=== PATIENT | female | born 1960 | race Caucasian/White ===

== ENCOUNTER 2017-03-15 14:35 | Emergency (ER) | payer OTHER ==
[~2017-03-15] VITALS: Ht 162.5 cm; Wt 62.1 kg
[~2017-03-15 14:35] MED LIST: 'PARAFON FORTE500 M1 PO; ALBUTEROL0.09 MG/A2 IH; ANTIVERT25 MG PO; ATIVAN0.5 MG PO; ATIVAN1 MG PO; BACTRIM DS 8001 TA1 PO; BENTYL10 MG PO; BENTYL20 MG PO; BLOOD PRESSURE; CLARITIN-D 12 H1 TAB PO; CLONAZEPAM1 MG PO; DARVOCET N 1001 TAB PO; DOXYCYCLINE MO100 MG PO; FLAGYL500 MG PO; HYDROCODONE BIT1 T11 PO; INDOCIN50 MG PO; LEVOFLOXACIN500 MG PO; LISINOPRIL; LISINOPRIL10 MG PO; LOMOTIL 0.025 M1 TA1 PO; MEDROL DOSEPAK4 MG PO; MOTRIN800 MG PO; PAXIL10 MG PO; PAXIL30 M2 PO; PAXIL30 MG PO; PEPCID20 MG PO; PHENERGAN W/DM120 ML PO; PHENERGAN25 M1 PO; PRILOSEC20 MG PO; PRILOSEC40 M1 PO; PROAIR HFA0.09 MG/AC IH; PROTONIX40 MG PO; PROVENTIL0.09 MG/AC IH; PYRIDIUM200 MG PO; Phenergan25 MG PO; TRAMADOL HCL50 MG PO; VICODIN 5-3001 EACH PO; VICODIN 5/500 505 MG PO; VISTARIL25 M1 PO; ZESTRIL10 MG PO; ZITHROMAX Z PA250 MG PO; ZOFRAN ODT4 MG SL; ZOFRAN4 MG PO
[2017-03-16 07:06] LABS: HEPATITIS B SURFACE AG Negative (Negative); HEPATITIS C AB 0.1 (0.0-0.9)
[2017-03-16 08:12] LABS: HIV 1+2 AB + HIV1 P24 AG Non Reactive (Non Reactive)
== END 2017-03-15 15:35 | disposition home or self-care (01) ==
LOC: ED 14:35
PROVIDERS: Nurse Practitioner Family
DX: S61.230A Puncture wound without foreign body of right index finger without damage to nail, initial encounter (principal); F17.200 Nicotine dependence, unspecified, uncomplicated; Z90.49 Acquired absence of other specified parts of digestive tract; Z79.899 Other long term (current) drug therapy; Z88.0 Allergy status to penicillin; W27.3XXA Contact with needle (sewing), initial encounter; Y93.89 Activity, other specified; Y92.89 Other specified places as the place of occurrence of the external cause; Y99.9 Unspecified external cause status

== ENCOUNTER 2017-06-04 18:20 | Emergency (ER) | payer OTHER ==
[~2017-06-04] VITALS: Ht 162.5 cm; Wt 62.6 kg
[2017-06-04 18:59] LABS: BASO # 0.1 10*3/uL (0.0-0.1); BASO % 0.7 % (0.0-1.0); EOS # 0.2 10*3/uL (0.0-0.4); EOS % 1.8 % (1.0-4.0); HEMATOCRIT 37.8 % (37.0-47.0); LYMPH % 21.5 % (27.0-41.0); MEAN CELL VOLUME 88.7 fl (81.0-99.0); MEAN CORPUSCULAR HGB 30.5 pg (27.0-31.0); MEAN CORPUSCULAR HGB CONC 34.4 g/dl (33.0-37.0); MONO # 0.8 10*3/uL (0.1-1.0); MONO % 8.2 % (3.0-9.0); NEUT # 6.2 10*3/uL (2.3-7.9); NEUT % 67.4 % (47.0-73.0); PLATELET COUNT AUTOMATED 336 10*3/uL (130-400); RED BLOOD COUNT 4.26 10*6/uL (4.10-5.10); RED CELL DISTRI WIDTH 12.1 % (0-14.5); WHITE BLOOD COUNT 9.1 10*3/uL (4.8-10.8)
[2017-06-04 19:16] LABS: ALBUMIN 3.5 gm/dl (3.1-4.5); ALKALINE PHOSPHATASE 87 U/L (45-117); BUN 10 mg/dl (7-24); CHLORIDE 98 mmol/L (98-107); CREATININE 0.52 mg/dL (0.55-1.02); LIPASE 321 U/L (73-393); POTASSIUM 3.4 mmol/L (3.5-5.1); SGOT/AST 12 IU/L (3-35); SGPT/ALT 18 U/L (12-78); SODIUM 135 mmol/L (136-145); TOTAL PROTEIN 7.5 gm/dL (6.4-8.2)
[2017-06-04 19:17] LABS: TROPONIN I < 0.015 ng/ml (<0.045)
[2017-06-04 19:48] LABS: BILIRUBIN NEGATIVE (NEGATIVE); BLOOD TRACE-LYSED (NEGATIVE); CLARITY CLEAR (CLEAR); COLOR YELLOW (YELLOW); GLUCOSE NEGATIVE (NEGATIVE); KETONE NEGATIVE (NEGATIVE); LEUKO ESTERASE NEGATIVE (NEGATIVE); NITRITE NEGATIVE (NEGATIVE); PH 5.5 (5.0-9.0); SPECIFIC GRAVITY <= 1.005 (1.005-1.030); UROBILINOGEN 0.2 E.U./dl (0.2-1.0)
[2017-06-04 19:54] LABS: BACTERIA TRACE
[2017-06-04] MEDS ORDERED: ZOFRAN ODT4 MG SL (21:57)
== END 2017-06-04 21:59 | disposition home or self-care (01) ==
LOC: ED 18:20
PROVIDERS: Physician Assistant
DX: R11.2 Nausea with vomiting, unspecified (principal); F17.200 Nicotine dependence, unspecified, uncomplicated; Z88.0 Allergy status to penicillin; Z79.899 Other long term (current) drug therapy

== ENCOUNTER 2017-10-16 16:18 | Emergency (ER) | payer OTHER ==
[~2017-10-16] VITALS: Ht 160 cm; Wt 62.1 kg
[2017-10-16] MEDS ORDERED: CLINDAMYCIN150 MG PO (16:36)
== END 2017-10-16 16:52 | disposition home or self-care (01) ==
LOC: ED 16:18
DX: R59.1 Generalized enlarged lymph nodes (principal); R03.0 Elevated blood-pressure reading, without diagnosis of hypertension; Z90.49 Acquired absence of other specified parts of digestive tract; Z79.899 Other long term (current) drug therapy; Z88.0 Allergy status to penicillin

== ENCOUNTER 2017-11-15 20:09 | Inpatient (IN) | payer OTHER ==
[~2017-11-15] VITALS: Ht 162.6 cm; Wt 68.2 kg
--- NOTE | ~2017-11-15 | CON ---
[place], [place] REPORT OF CONSULTATION [id number] UNIT #: [id number] ROOM: 415 DOCTOR: MONSE MOODY MD BIRTHDATE: [birth year] DOS: 11/16/2017 REASON FOR CONSULTATION: Pericardial effusion. HISTORY OF PRESENT ILLNESS: The patient is a 57-year-old woman who does have a history of cigarette abuse. She was evaluated at the [facility] several years ago with a cardiac catheterization because of complaints of dyspnea and chest discomfort. She was told at that time that she had mild coronary artery disease, but that it would certainly get worse if she continued to smoke. She has not stopped smoking since then, but has not had any further chest discomfort. About 1-1/2 months ago, she did have pneumonia. She was treated with antibiotics and improved and was doing well until the last week or two. In that time, she began to have increased dyspnea and a tight sensation across her chest associated with some nausea and some vomiting. She did note that she had swelling in front of her left ear, which was firm and tender. She also does note that she has had soaking night sweats, which have been present for several weeks. She denies any persistent weight loss, although she states that her weight is going "up and down." She came into the hospital because of worsening dyspnea. A CAT scan was done and showed mild dilation of the ascending aorta, which measures 3.8 cm in diameter. This is similar to what was seen on a previous CAT scan dated 09/22/2015. She also had a moderate sized pericardial effusion. She has soft tissue densities in the right hilar region with narrowing of the upper lobe bronchus and also narrowing of the bronchus intermedius as well as the right lower lobe bronchus concerning for central mass and malignancy with possible postobstructive pneumonia. She also has a moderate sized left pleural effusion. Because of the pericardial effusion, we were asked to help with her management. The patient denies lightheadedness. She denies pleuritic chest pain. She has a dry nonproductive cough. She has not had any syncope. PAST MEDICAL HISTORY: Includes 1. Cardiac catheterization several years ago at the [facility]. According to the patient, this demonstrated mild coronary artery disease. 2. Gastroesophageal reflux disease. 3. Nephrolithiasis. 4. History of rib fracture. 5. Pancreatitis. 6. History of depression. 7. Remote history of alcohol abuse. 8. Tobacco abuse of about one-half pack of cigarettes per day. 9. Pneumonia 1-1/2 months prior to the current admission. FAMILY HISTORY: The patient's father of a heart attack at age 57. Her paternal grandmother and grandfather both had heart disease. Her brother of a drug overdose. REVIEW OF SYSTEMS: The patient denies diplopia or loss of vision. She denies [place], [place] REPORT OF CONSULTATION NAME: LEVON CROFT UNIT #: [id number] ROOM: 415 DOCTOR: MONSE MOODY MD BIRTHDATE: [birth year] lightheadedness or syncope. She denies palpitations, orthopnea or PND. She has had a heavy aching in her chest, but she states that this is actually getting better. She does admit to soaking night sweats, which have been present for several weeks, but she denies any persistent weight loss. She has had some nausea and vomiting. She denies blood in her urine or stools and denies hemoptysis or hematemesis. She denies change in her bowel or bladder habits. She denies peripheral edema. The remainder of the review of systems is negative except as noted above. SOCIAL HISTORY: The patient is single. She works as a cook at [employer]. She smokes about half pack of cigarettes a day. PHYSICAL EXAMINATION: GENERAL: The patient is a well-nourished, white female who is awake, alert and oriented. VITAL SIGNS: Pulse is 88 and regular, blood pressure is 149/76. She is afebrile. HEENT: Normocephalic and atraumatic. Extraocular muscles are intact. Sclerae are clear. Pupils are equal, round and react to light. The oral mucosa is moist. Tongue is midline. NECK: Supple. She does have firm lymph nodes in the anterior cervical chains bilaterally. These are slightly tender to palpation. Carotids are full without bruits. She has no thyromegaly. LUNGS: Respirations are unlabored. Her chest has decreased breath sounds at the right base with dullness at the right base. She has no presacral edema. She has no axillary adenopathy on the right, but there is some thickening of the axillary tissues on the left, which may be due to adenopathy. CARDIOVASCULAR: Her heart has a regular rhythm. She has a fourth heart sound, but no third heart sound or murmur. There is no rub. She has no precordial heave, lift or thrill. There is no obvious pulsus paradoxus on evaluation of peripheral pulses. ABDOMEN: Soft and normoactive. She does have tenderness in her left upper quadrant and her spleen does appear to be slightly enlarged to palpation. The remainder of her abdomen is benign without masses, organomegaly, bruits or rebound. EXTREMITIES: Showed no edema to the feet. She has no palpable cords. Pedal pulses are easily palpated bilaterally. LABORATORY DATA: Her electrocardiogram shows sinus rhythm with poor precordial R-wave progression and nonspecific ST and T-wave changes. Hemoglobin is 13.2, hematocrit 39.2. There are 4500 white cells and 267,000 platelets present. Sodium is 143, potassium 3.8, chloride 107, CO2 25, BUN 10, creatinine 0.65, glucose 145. Hemoglobin A1c 4.8. Troponin levels have been negative. Total cholesterol is 210 with an LDL of 150 and HDL 42 and triglycerides of 88. IMPRESSION: 1. Moderate sized pericardial effusion noted on CT scanning of the chest. There is no hemodynamic evidence for tamponade at this point. [place], [place] REPORT OF CONSULTATION NAME: LEVON CROFT UNIT #: [id number] ROOM: [facility] DOCTOR: MONSE MOODY MD BIRTHDATE: [birth year] 2. Ascending aortic ectasia. The aorta is at the upper limits of normal and unchanged from a previous CAT scan of the chest dated 09/22/2015. This should be treated with blood pressure control and observation only. 3. Cervical adenopathy with possible left axillary adenopathy and possible splenomegaly. In addition, the patient does have mediastinal adenopathy, a pericardial effusion, and night sweats. I think that it is most likely that the patient does have lymphoma, but other malignancies must also be considered. 4. History of cigarette abuse. PLAN: From a cardiac standpoint, the patient appears hemodynamically stable. The pleural effusion is likely due to her malignancy and the pericardial effusion appears to have accumulated gradually so that it has not caused hemodynamic embarrassment. We will evaluate her further with an echocardiogram to look at left ventricular function, valve function and any other signs of tamponade, but at this point, she seems to be free of tamponade findings. I think that in the long run her diagnosis and treatment will depend upon the results of tissue sampling. Her pericardial effusion will likely respond to whatever therapy is given for her malignancy once it is initiated. We will follow with her other physicians. I thank the hospitalist physicians for asking our advice regarding her care. MONSE MOODY MD CM:CONSTR:REPORT OF CONSULTATION 30 11/25/17 0814 interface
--- NOTE | ~2017-11-15 | PR ---
[place], [place] PROGRESS NOTE NAME: LEVON CROFT [facility] #: [id number] UNIT #: [id number] ROOM: 415 DOCTOR: MONSE MOODY MD BIRTHDATE: [birth year] DOS: 11/17/2017 SUBJECTIVE: The patient was seen at her bedside today for followup of her pericardial effusion. She did undergo a thoracentesis, 700 mL were removed. Analysis is pending. Bronchoscopy is planned for tomorrow. I reviewed the results of her echocardiogram today. Left ventricular size and function are normal. A moderate to large pericardial effusion is present. The visceral pericardium is thickened and irregular consistent with possible tumor infiltration. Left ventricular systolic function is normal with an ejection fraction of 55%. Diastole appears normal as well. No valve abnormalities were seen. Right atrial collapse is present, but right ventricular collapse is not and there is no evidence for a Doppler pulsus paradoxus. The study indicates that she does not have a hemodynamically significant pericardial effusion as of yet. PHYSICAL EXAMINATION: VITAL SIGNS: Today her pulse is 84 and regular, blood pressure is 139/80. She is afebrile. NECK: Supple. She has bilateral adenopathy and firm masses in her neck. LUNGS: Respirations are unlabored. She does have decreased breath sounds at the right base. There is no presacral edema. HEART: Has a regular rhythm with a fourth heart sound, but no third heart sound or murmur. I did not hear a rub. There was no precordial heave, lift or thrill. ABDOMEN: Soft and normally active. EXTREMITIES: Showed no edema. IMPRESSION: 1. Moderate sized pericardial effusion noted on CT scan of the chest. There is no hemodynamic evidence for tamponade at this point. 2. Ascending aortic ectasia. The aorta is at the upper limits of normal in size and unchanged from a previous study done 09/22/2015. This should be treated with blood pressure control and observation. 3. Cervical adenopathy with possible left axillary adenopathy, possible splenomegaly and mediastinal adenopathy. In addition, the patient does have a pericardial effusion and night sweats. This most likely represents a lymphoma, but other malignancies must also be considered. 4. History of cigarette abuse. PLAN: The patient remains hemodynamically stable. Pleural fluid was sampled today and she is to have a bronchoscopy tomorrow. I think that a tissue diagnosis will be very helpful in her ongoing management and we will await that. I thank the hospitalist physicians for asking our advice regarding her care. [place], [place] PROGRESS NOTE NAME: LEVON CROFT UNIT #: [id number] ROOM: [facility] DOCTOR: MONSE MOODY MD BIRTHDATE: [birth year] MONSE MOODY MD CM:PNTRANS [id number] MONSE MOODY MD 11/18/17 4859 interface
--- NOTE | ~2017-11-15 | PROC NOTE ---
[place], [place] PROCEDURE NOTE [id number] UNIT #: [id number] ROOM: 415 DOCTOR: NIRU SERRATO MD,CEE BIRTHDATE: [birth year] DOS: 11/17/2017 PROCEDURE: Right-sided thoracentesis under ultrasound guidance. PREOPERATIVE DIAGNOSIS: The patient with a right pleural fluid, unclear etiology. POSTOPERATIVE DIAGNOSES: Removal of 700+ mL pleural fluid, right pleural space without any difficulty with ultrasound guidance. PROCEDURE DESCRIPTION: Informed consent obtained for the patient. She was placed in the sitting position. Ultrasound of the chest was performed. The site of thoracentesis marked in the right posterior chest wall. After that, skin was cleaned with chlorhexidine solution, 1% lidocaine was administered in the skin for the patient during administration of local anesthetic, a small amount of fluid was aspirated from the right pleural space. Small incision given in the skin for the patient, Turkel catheter introduced through the incision into the right pleural space without any difficulty. A total of 700 mL of pleural fluid was obtained for the patient with initial fluid was obtained for samples including for pH. Procedure well tolerated by the patient without any difficulty. The chest x-ray was also done for the patient shows resolution of the current pleural fluid, improvement in aeration of the lung as well. There was no pneumothorax. CEE MARRUFO MD CM:PROCNOTE:PROCEDURE NOTE 1129 [id number] CEE SERRATO MD
--- NOTE | ~2017-11-15 | PROC NOTE ---
[place], [place] PROCEDURE NOTE NAME: LEVON CROFT UNIT #: [id number] ROOM: 415 DOCTOR: NIRU SERRATO MD,CEE BIRTHDATE: [birth year] DOS: 11/18/2017 PROCEDURE: Fiberoptic bronchoscopy. PREOPERATIVE DIAGNOSES: The patient with lymphadenopathy, mediastinum with the right pleural fluid and cough. POSTOPERATIVE DIAGNOSES: Moderate severe impacted mucus plugs. There were no discrete endobronchial lesion. Irregular mucosa noted with a splayed mumtaz. COMPLICATION: None. PROCEDURE DESCRIPTION: Informed consent obtained for the patient. The patient brought to the OR and placed in supine position. Conscious sedation administered by Anesthesia Department. After achieving proper sedation, airway introduced into the mouth. Bronchoscope advanced to the airway into laryngeal area. Epiglottis and vocal cords were seen. Vocal cords moving in symmetrically with movements. Bronchoscope and vocal and tracheal lumen shows moderate amount of thick mucus secretion, which was suctioned out with the help of normal saline wash. The mumtaz was noted splayed. Significant irregularity to the mucosa noted at the level of the mumtaz patient in the main stem bronchi and lower part of trachea. Significant that is unknown possibility of infiltrative process and the submucosa to be considered. The mucous impaction was also noted endobronchial tree bilateral subsegments as well, which were cleared off with normal saline wash and sent for cultures. Procedure well tolerated by the patient without any difficulty. The patient will be transferred to [facility] for further assessment for the patient today. The case was discussed with Dr. Mirella Holm as well to make arrangement for transfer. CEE MARRUFO MD CM:PROCNOTE:PROCEDURE NOTE 0820 0835 CEE SERRATO MD
--- NOTE | ~2017-11-15 | EKG ---
[place], [place] ELECTROCARDIOGRAM REPORT NAME: LEVON CROFT UNIT #: [id number] ROOM: 415 DOCTOR: NIRU SERRATO MD,CEE BIRTHDATE: [birth year] DOS: 11/17/2017 Echocardiogram done on 11/17/2017 at 10:16 a.m. Normal sinus rhythm noted. Heart rate 72 beats per minute. The electrocardiogram was noted normal. CEE MARRUFO MD CM:EKGRPT:ELECTROCARDIOGRAM REPORT 1021 1124 CEE SERRATO MD
--- NOTE | ~2017-11-15 | CON ---
[place], [place] REPORT OF CONSULTATION NAME: LEVON CROFT [facility] #: [id number] UNIT #: [id number] ROOM: 415 DOCTOR: CEE FERNANDEZ MD BIRTHDATE: [birth year] DOS: 11/17/2017 CONSULTATION REQUESTED BY: Hospitalist service. REASON FOR CONSULTATION: Pleural fluid, possibly mass, and pneumonia in the lungs as well. HISTORY OF PRESENT ILLNESS: This is a 57-year-old white female patient who was admitted to the hospital on 11/15/2017 under the care of hospitalist services. The patient has been seen and managed by Dr. Sandoval as an outpatient. The patient stated that she had developed symptoms of acute chest pain, which has been reported in the right side of the chest associated with coughing, wheezing or shortness of breath about a month and half ago. She has been noted with acute pneumonia, which has been treated with the antibiotics and also inhalers. The patient stated reduction and resolution of the symptom for this patient until later, she developed having increased symptoms of shortness of breath that occurred recently. She also developed coughing, which has been noted mostly nonproductive with excessive sweating. She denies symptoms of chills, but stating that she might have a fever. She denies symptoms of hemoptysis with current symptom. She denies any symptoms of acute chest pain at this time, which has been noted previously about a month and half ago on the right side that resolved completely. The patient does have symptoms of shortness breath that occurs with exertion. REVIEW OF SYSTEMS: Remaining systems were reviewed. They were noted for as follows: CONSTITUTIONAL: Fatigue and tiredness reported. The patient with sweating excessive intermittently, but there were no symptoms of fever or chills reported. EAR, NOSE, AND THROAT: Denies sore throat, hoarseness, otalgia, postnasal drainage or epistaxis. CARDIOVASCULAR: Denies anginal pain, edema or pain in the lower extremities. GASTROINTESTINAL: Denies dysphagia, nausea, vomiting, diarrhea, abdominal pain, hematemesis, melena, or hematochezia. GENITOURINARY: No dysuria, suprapubic pain, or hematuria. MUSCULOSKELETAL: No acute joint pain, redness, or tenderness. SKIN: Denies abnormal lesions or rashes. CENTRAL NERVOUS SYSTEM: No dizziness, diplopia or syncopal episodes or seizures. Remaining systems were reviewed with the patient, they were noted all negative. PAST MEDICAL HISTORY: 1. Coronary artery disease. 2. Allergic rhinitis. 3. Depression. 4. Gastroesophageal reflux. 5. Nephrolithiasis. 6. History of pancreatitis. 7. History of rib fractures. [place], [place] REPORT OF CONSULTATION NAME: LEVON CROFT UNIT #: [id number] ROOM: 415 DOCTOR: NIRU SERRATO MD,CEE BIRTHDATE: [birth year] PAST SURGICAL HISTORY: Reported: 1. Cholecystectomy. 2. Cardiac catheterization and coronary stents insertion. SOCIAL HISTORY: The patient stated she is single, does not have any children, lives at home. Denies history of illicit drug use, any alcohol use. Tobacco use noted from age 22, use of 1 pack of cigarettes per day. Later on, the patient decreased to half a pack of cigarettes per day smoking about half pack of cigarettes per day actively for the past 20 years. FAMILY HISTORY: Father at age 50 from complication of myocardial infarction. Mother at the age 50 with complication related to the cancer of the colon and ovaries. Several of the family member on the mother's side reported with a history of colon cancer as well. HOME MEDICATIONS: Noted as use of Zyrtec, omeprazole, Percocet, and Paxil. DRUG ALLERGIES: NOTED ALLERGY TO PENICILLIN. PHYSICAL EXAMINATION: GENERAL: This is a 57-year-old white female who was noted well-developed, well-nourished without any acute distress, sitting comfortably on the bed. Height of 5 feet 4 inches, weight 150 pounds, BMI 25.7. VITAL SIGNS: For the patient which has been recorded showed normal temperature, respiratory rate 16-18, heart rate of 84-100, blood pressure 184/88-151/72. Pulse oxygen saturation on room air was 94% saturation. HEENT: Shows head was atraumatic. Eyes nonicterus. NECK: Supple. CARDIOVASCULAR: S1, S2 audible. LUNGS: Noted decreased breaths are noted in the right lung. No wheezing or crackles. ABDOMEN: Soft, flat, nontender, bowel sounds present. EXTREMITIES: No acute edema. MUSCULOSKELETAL: No acute deformities. CENTRAL NERVOUS SYSTEM: Cranial nerves 2-12 are intact. LABORATORY DATA: CBC of the patient that was done on 11/15/2017 was normal. The lactic acid of 1.8, normal. PT/PTT noted normal. CMP of 618. BUN normal, creatinine was normal, and potassium 2.8. The troponin in addition to assess the patient on 11/15/2017 was normal. BMP of the patient of 11/16/2017, normal BUN and creatinine. Glucose 145. BUN and creatinine noted normal on 11/15/2017 as well. Blood culture from 11/15/2017, which were done for the patient was noted without any abnormal bacterial growth. RADIOLOGY DATA: Review of the patient was performed. The patient had a CT scan of the chest, which was done on 09/21/2017 noted as no acute abnormalities. The chest x-ray of patient done on 11/16/2016 about a year ago noted changes of hyperinflation, possible COPD, no acute infiltration. On 06/04/2017, chest x-ray of the patient noted without any acute abnormalities. Chest x-ray which [place], [place] REPORT OF CONSULTATION [facility]: [id number] UNIT #: [id number] ROOM: [facility] DOCTOR: NIR[facility] BIR[facility] [birth year] was done, 2-view for the patient on 11/15/2017 showed perihilar infiltration was suggested for the patient. CT scan of the chest was done for the patient without contrast on 11/16/2017 was noted with narrowing of the right mid stem bronchus as well and the right upper lung bronchi as well. Because of lack of contrast, the mediastinal structure could not be very well assessed, possibly lymphadenopathy can be completely excluded. Area of right middle lobe atelectasis, right lower lobe atelectasis noted with moderate size pleural fluid as well. A small 5 mm nodule was noted in the left upper lobe as well. There was no pleural fluid noted in the left side. IMPRESSION: 1. The patient will be currently admitted to the hospital noted with presumed pneumonia. There was no documentation actually for the patient, which has been done. The patient empirically treated most likely with antibiotics. The patient about 6 weeks ago with resolution of symptoms and recurrence of current symptoms noted. Current CT scan of chest shows CHF suggestive of possibly partially treated pneumonia; however, malignancy to be excluded for further comprehensive assessment with history of chronic nicotine abuse. 2. History of allergic rhinitis as well. 3. A 5 mm nodule noted in the left upper lobe at this time, significance unknown. Other differential to be considered for the patient is to rule out pulmonary embolism for the patient, other etiology for the patient as well for appropriate testing. PLAN OF MANAGEMENT: The patient has been currently getting bronchodilators and other pain management for the patient if necessary. She does not have any chest pain at this time. Bronchodilators were continued for the patient as was also receiving the Solu-Medrol for patient as well that will be continued for possibility of acute exacerbation of COPD. The patient has not been receiving any intravenous antibiotics. The patient will be started on at least doxycycline 100 mg orally b.i.d. The thoracentesis for the patient will be done at the bedside. Ultrasound of the chest was performed for patient with moderate size pleural fluid was isolative on the right side for thoracentesis. Based on the pleural fluid analysis, additional assessment to be done. Further bronchoscopy plan to be done. CTA of the chest will be done for the patient to have more accurate assessment of the mediastinum, pulmonary vessels. The risk and benefits of the thoracentesis that will be performed today and bronchoscopy that will be done tomorrow were discussed in detail with the patient. She understood them and wanted me to proceed with the current testing and procedures. [place], [place] REPORT OF CONSULTATION NAME: LEVON CROFT UNIT #: [id number] ROOM: [facility] DOCTOR: CEE FERNANDEZ MD BIRTHDATE: [birth year] CEE MARRUFO MD CM:CONSTR:REPORT OF CONSULTATION 1128 11/24/17 0827 interface
--- NOTE | ~2017-11-15 | PR ---
[place], [place] PROGRESS NOTE NAME: LEVON CROFT [facility] #: [id number] UNIT #: [id number] ROOM: 415 DOCTOR: NIRU SERRATO MD,CEE BIRTHDATE: [birth year] DOS: 11/18/2017 PULMONARY PROGRESS NOTE SUBJECTIVE: The patient was noted comfortable at this time. Thoracentesis done yesterday with about 700 mL of fluid was removed. The patient has a CT of the chest completed yesterday to further assess the mediastinal and other structure appropriately. The patient was not noted symptoms of chest pain. There were no symptoms of shortness of breath or hemoptysis. There were no symptoms of headache or diplopia. Denies symptoms of edema or pain of lower extremities. Denies symptoms of nausea or vomiting. Remaining systems were reviewed and they were noted all negative. PHYSICAL EXAMINATION: VITAL SIGNS: Vital signs of the patient, which were noted as normal temperature, respiratory rate 24, heart rate 77, and blood pressure 160/98 this morning. Pulse oxygen saturation on room air 94% saturation. HEENT: Examination shows head was atraumatic. Eyes nonicterus. NECK: Supple. CARDIOVASCULAR: S1, S2 audible. LUNGS: The patient was noted without any wheezing or crackles at the present time. Breath sounds noted minimally decreased in the right lower lung. ABDOMEN: Soft, nontender. Bowel sounds present. EXTREMITIES: The patient noted without any acute edema, clubbing, or cyanosis. CENTRAL NERVOUS SYSTEM: Nonfocal. MUSCULOSKELETAL: Noted without any gross deformities. VISIBLE SKIN: No lesions or rashes. LABORATORY DATA: CBC for the patient of 11/18/2017 was noted as WBC count normal, hemoglobin, hematocrit, and platelet count all noted as normal. CMP of this morning, BUN 13, creatinine normal, and glucose 116. Remaining LFTs normal. Echocardiogram that was completed yesterday shows evidence of stwrvhub-wy-qteqd pericardial effusion with regularity of the pericardial surface is also noted suggestive of possible consideration for malignancy as well. CT of the chest was also personally reviewed shows a small remaining right pleural fluid. There was no discrete mass. A 5 mm nodule noted in the left lingula. Significant amount of soft tissue was noted in the right hilar area as well as pre and subcarinal area. Possible consideration of lymphadenopathy to be considered. The analysis of pleural fluid of yesterday noted as total WBC of 3,900, 80% lymphocytes, and 80% macrophages. Chemistry was noted, glucose 141, protein of 4.1, LDH 161, cholesterol 75, triglycerides 25, amylase 36, and albumin 2.6 consistent with an exudative pleural effusion. Cultures of the pleural fluid predominantly noted as pending. Gram stain does not show any organism with moderate white blood cells seen. Culture of the urine noted no bacterial growth from 11/16/2017. IMPRESSION: 1. The patient who has been currently noted with multiorgan system involving the patient with [id number] pericardial effusion with pleural fluid, [place], [place] PROGRESS NOTE NAME: LEVON CROFT UNIT #: [id number] ROOM: 415 DOCTOR: NIRU SERRATO MD,CEE BIRTHDATE: [birth year] which was also noted exudative in nature of lymphadenopathy, mediastinum with possible consideration for malignancy remains in the differential diagnosis. However, the infection, which could be viral in origin could result in a serositis including pericardial effusion and the pleural effusion as well. 2. History of nicotine abuse previously. 3. Acute exacerbation of chronic obstructive pulmonary disease as well. PLAN OF MANAGEMENT: Reduce the Solu-Medrol to 40 mg b.i.d. dosing at this time. This is the fibrobronchoscopy. Modification treatment after bronchoscopy will be considered for transfer to [facility] for pericardial window. It will be necessary to exclude malignancy as well. Follow up the cytology results of the pleural fluid as well. The patient might require assessment of the mediastinal if necessary. The case was discussed with Dr. Ramirez, thoracic surgeon, staff at [facility] about that. The patient was told about that and she was agreeable to that. Other supportive therapy and plan of management in the meantime to be continued as in progress. Usual care. Additional treatment changes will be made for the patient based on progression of the illness. CEE MARRUFO MD CM:PNTRANS [id number] CEE SERRATO MD 11/18/17 0825 interface
[2017-11-15 20:09] VITALS: BP 155/83
[~2017-11-15 20:09] MED LIST changes: +CLINDAMYCIN150 MG PO
[2017-11-15 20:40] LABS: BASO # 0.1 10*3/uL (0.0-0.1); EOS # 0.1 10*3/uL (0.0-0.4); EOS % 1.5 % (1.0-4.0); HEMATOCRIT 41.8 % (37.0-47.0); HEMOGLOBIN 13.9 g/dl (12.0-16.0); LYMPH % 13.8 % (27.0-41.0); MEAN CELL VOLUME 85.7 fl (81.0-99.0); MEAN CORPUSCULAR HGB 28.5 pg (27.0-31.0); MEAN CORPUSCULAR HGB CONC 33.3 g/dl (33.0-37.0); MEAN PLATELET VOLUME 9.2 fl (9.6-12.3); MONO # 0.6 10*3/uL (0.1-1.0); MONO % 8.3 % (3.0-9.0); NEUT # 5.4 10*3/uL (2.3-7.9); PLATELET COUNT AUTOMATED 293 10*3/uL (130-400); RED BLOOD COUNT 4.88 10*6/uL (4.10-5.10); RED CELL DISTRI WIDTH 13.6 % (0-14.5); WHITE BLOOD COUNT 7.2 10*3/uL (4.8-10.8)
[2017-11-15 20:50] LABS: ACT PARTIAL THROMBO TIME 23.9 SECONDS (20.8-31.5)
[2017-11-15 20:56] LABS: ALBUMIN 3.5 gm/dl (3.1-4.5); ALKALINE PHOSPHATASE 91 U/L (45-117); BUN 5 mg/dl (7-24); CHLORIDE 105 mmol/L (98-107); CREATININE 0.65 mg/dL (0.55-1.02); LIPASE 162 U/L (73-393); POTASSIUM 2.8 mmol/L (3.5-5.1); SGOT/AST 12 IU/L (3-35); SGPT/ALT 16 U/L (12-78); SODIUM 142 mmol/L (136-145); TOTAL PROTEIN 7.4 gm/dL (6.4-8.2)
[2017-11-15 20:59] LABS: TROPONIN I < 0.015 ng/ml (<0.045)
[2017-11-15 23:15] VITALS: BP 149/87
[2017-11-15] MEDS ORDERED: ZYRTEC10 MG PO (23:34)
[2017-11-15] MEDS ORDERED: PERCOCET 7.5-31 EACH PO (23:34)
[2017-11-15 23:57] LABS: BILIRUBIN NEGATIVE (NEGATIVE); BLOOD TRACE-INTACT (NEGATIVE); CLARITY SL CLOUDY (CLEAR); COLOR YELLOW (YELLOW); GLUCOSE NEGATIVE (NEGATIVE); KETONE TRACE (NEGATIVE); LEUKO ESTERASE NEGATIVE (NEGATIVE); NITRITE NEGATIVE (NEGATIVE); SPECIFIC GRAVITY >= 1.030 (1.005-1.030)
[2017-11-16] VITALS (7 sets, daily range): BP systolic 149–184; BP diastolic 72–98
[2017-11-16 00:12] LABS: BACTERIA 1+; MUCOUS TRACE
[2017-11-16 06:10] LABS: HEMATOCRIT 39.2 % (37.0-47.0); HEMOGLOBIN 13.2 g/dl (12.0-16.0); MEAN CELL VOLUME 86.5 fl (81.0-99.0); MEAN CORPUSCULAR HGB 29.1 pg (27.0-31.0); MEAN CORPUSCULAR HGB CONC 33.7 g/dl (33.0-37.0); MEAN PLATELET VOLUME 9.6 fl (9.6-12.3); PLATELET COUNT AUTOMATED 267 10*3/uL (130-400); RED BLOOD COUNT 4.53 10*6/uL (4.10-5.10); RED CELL DISTRI WIDTH 13.6 % (0-14.5); WHITE BLOOD COUNT 4.5 10*3/uL (4.8-10.8)
[2017-11-16 06:44] LABS: BUN 10 mg/dl (7-24); CHLORIDE 107 mmol/L (98-107); CHOLESTEROL 210 mg/dL (<200); CREATININE 0.65 mg/dL (0.55-1.02); HDL CHOLESTEROL 42 mg/dl (40-60); LDL CHOLESTEROL 150 mg/dL (9-159); PHOSPHOROUS 2.6 mg/dL (2.5-4.9); SODIUM 143 mmol/L (136-145); TRIGLYCERIDES 88 mg/dl (<150); VLDL CHOLESTEROL 18 mg/dL (6-40)
[2017-11-16 06:50] LABS: POTASSIUM 3.8 mmol/L (3.5-5.1); THYROID STIM HORMONE (HS) 0.204 uIU/ml (0.358-4.75)
[2017-11-16 07:10] LABS: PLATELET SUFFICIENCY NORMAL (NORMAL); TOTAL CELLS COUNTED 100 #CELLS
[2017-11-16 08:20] LABS: VITAMIN D, 25-HYDROXY 24.4 ng/mL (30-100)
[2017-11-17] VITALS: BP 138/86
[2017-11-17 08:00] VITALS: BP 184/94
[2017-11-17 10:12] LABS: BODY FLUID WBC 3970 /uL
[2017-11-17 11:00] LABS: BF LYMPHOCYTES 80 %; BF MACROPHAGES 18 %; BF MESOTHELIALS 1 %; BF NEUTROPHILS 1 %
[2017-11-17 12:00] VITALS: BP 108/55
[2017-11-17 16:00] VITALS: BP 139/80
[2017-11-17 20:00] VITALS: BP 134/65
[2017-11-18] VITALS (8 sets, daily range): BP systolic 128–162; BP diastolic 65–98
[2017-11-18 07:10] LABS: BASO % 0.1 % (0.0-1.0); HEMATOCRIT 38.2 % (37.0-47.0); HEMOGLOBIN 12.4 g/dl (12.0-16.0); LYMPH # 0.6 10*3/uL (1.3-4.4); LYMPH % 7.6 % (27.0-41.0); MEAN CELL VOLUME 89.7 fl (81.0-99.0); MEAN CORPUSCULAR HGB 29.1 pg (27.0-31.0); MEAN CORPUSCULAR HGB CONC 32.5 g/dl (33.0-37.0); MEAN PLATELET VOLUME 9.8 fl (9.6-12.3); MONO # 0.3 10*3/uL (0.1-1.0); MONO % 3.8 % (3.0-9.0); NEUT # 6.6 10*3/uL (2.3-7.9); PLATELET COUNT AUTOMATED 297 10*3/uL (130-400); RED BLOOD COUNT 4.26 10*6/uL (4.10-5.10); RED CELL DISTRI WIDTH 14.2 % (0-14.5); WHITE BLOOD COUNT 7.5 10*3/uL (4.8-10.8)
[2017-11-18 07:28] LABS: ALBUMIN 3.2 gm/dl (3.1-4.5); BUN 13 mg/dl (7-24); CHLORIDE 102 mmol/L (98-107); CREATININE 0.53 mg/dL (0.55-1.02); POTASSIUM 3.5 mmol/L (3.5-5.1); SGOT/AST 15 IU/L (3-35); SGPT/ALT 22 U/L (12-78); SODIUM 140 mmol/L (136-145)
[2017-11-18 07:30] LABS: ALKALINE PHOSPHATASE 71 U/L (45-117); TOTAL PROTEIN 6.4 gm/dL (6.4-8.2)
[2017-11-18] MEDS ORDERED: LISINOPRIL20 MG PO (15:10)
[2017-11-18] MEDS ORDERED: VITAMIN D-32000 UNIT PO (15:10)
[2017-11-19 16:09] LABS: ACID FAST SPEC PROCESSING Concentration (.)
== END 2017-11-18 17:00 | disposition short-term general hospital (02) | DRG 190 ==
LOC: ED 20:09 → EDHOLD 22:25 → 4E 22:25
PROVIDERS: Internal Medicine; Internal Medicine Critical Care Medicine; Internal Medicine Nephrology; Nurse Practitioner Family
PROC: 0W993ZZ Drainage of Right Pleural Cavity, Percutaneous Approach (ICD-10-PCS; 2017-11-17)
PROC: 0BC98ZZ Extirpation of Matter from Lingula Bronchus, Via Natural or Artificial Opening Endoscopic (ICD-10-PCS; principal; 2017-11-18)
PROC: 0BC48ZZ Extirpation of Matter from Right Upper Lobe Bronchus, Via Natural or Artificial Opening Endoscopic (ICD-10-PCS; 2017-11-18)
PROC: 0BC88ZZ Extirpation of Matter from Left Upper Lobe Bronchus, Via Natural or Artificial Opening Endoscopic (ICD-10-PCS; 2017-11-18)
PROC: 0BC58ZZ Extirpation of Matter from Right Middle Lobe Bronchus, Via Natural or Artificial Opening Endoscopic (ICD-10-PCS; 2017-11-18)
PROC: 0BC38ZZ Extirpation of Matter from Right Main Bronchus, Via Natural or Artificial Opening Endoscopic (ICD-10-PCS; 2017-11-18)
PROC: 0BC78ZZ Extirpation of Matter from Left Main Bronchus, Via Natural or Artificial Opening Endoscopic (ICD-10-PCS; 2017-11-18)
PROC: 0BC68ZZ Extirpation of Matter from Right Lower Lobe Bronchus, Via Natural or Artificial Opening Endoscopic (ICD-10-PCS; 2017-11-18)
PROC: 0BCB8ZZ Extirpation of Matter from Left Lower Lobe Bronchus, Via Natural or Artificial Opening Endoscopic (ICD-10-PCS; 2017-11-18)
PROC: 0BC18ZZ Extirpation of Matter from Trachea, Via Natural or Artificial Opening Endoscopic (ICD-10-PCS; 2017-11-18)
DX: J44.0 Chronic obstructive pulmonary disease with (acute) lower respiratory infection (principal); J18.1 Lobar pneumonia, unspecified organism; N39.0 Urinary tract infection, site not specified; J44.1 Chronic obstructive pulmonary disease with (acute) exacerbation; D72.810 Lymphocytopenia; R07.9 Chest pain, unspecified; R00.0 Tachycardia, unspecified; E87.6 Hypokalemia; R73.9 Hyperglycemia, unspecified; E66.3 Overweight; F32.9 Major depressive disorder, single episode, unspecified; K21.9 Gastro-esophageal reflux disease without esophagitis; J30.9 Allergic rhinitis, unspecified; R59.1 Generalized enlarged lymph nodes; I77.819 Aortic ectasia, unspecified site; R59.9 Enlarged lymph nodes, unspecified; R91.1 Solitary pulmonary nodule; I25.10 Atherosclerotic heart disease of native coronary artery without angina pectoris; E53.8 Deficiency of other specified B group vitamins; E55.9 Vitamin D deficiency, unspecified; R31.9 Hematuria, unspecified; Z88.0 Allergy status to penicillin; Z79.899 Other long term (current) drug therapy; Z90.49 Acquired absence of other specified parts of digestive tract; Z98.61 Coronary angioplasty status; Z82.49 Family history of ischemic heart disease and other diseases of the circulatory system; Z83.3 Family history of diabetes mellitus; Z80.0 Family history of malignant neoplasm of digestive organs; Z71.6 Tobacco abuse counseling; Z72.0 Tobacco use; Z80.8 Family history of malignant neoplasm of other organs or systems; Z68.25 Body mass index [BMI] 25.0-25.9, adult

== ENCOUNTER 2017-12-05 13:44 | Emergency (ER) | payer OTHER ==
[~2017-12-05] VITALS: Ht 162.5 cm; Wt 66.7 kg
[~2017-12-05 13:44] MED LIST changes: +LISINOPRIL20 MG PO; +PERCOCET 7.5-31 EACH PO; +VITAMIN D-32000 UNIT PO; +ZYRTEC10 MG PO
== END 2017-12-05 14:45 | disposition home or self-care (01) ==
LOC: ED 13:44
DX: Z48.01 Encounter for change or removal of surgical wound dressing (principal); Z88.0 Allergy status to penicillin; Z79.899 Other long term (current) drug therapy; Z87.891 Personal history of nicotine dependence; Z98.890 Other specified postprocedural states

== ENCOUNTER → 2017-12-08 | Outpatient (CLI) | payer OTHER | END | disposition home or self-care (01) | LOC: RAD 07:30 | DX: J90 Pleural effusion, not elsewhere classified (principal); J93.9 Pneumothorax, unspecified ==

== ENCOUNTER 2018-06-04 09:58 | Emergency (ER) | payer OTHER ==
[~2018-06-04] VITALS: Ht 160 cm; Wt 63.5 kg
[2018-06-04] MEDS ORDERED: NAPROSYN500 MG PO (10:03)
== END 2018-06-04 11:00 | disposition home or self-care (01) ==
LOC: ED 09:58
DX: S83.92XA Sprain of unspecified site of left knee, initial encounter (principal); I25.10 Atherosclerotic heart disease of native coronary artery without angina pectoris; K21.9 Gastro-esophageal reflux disease without esophagitis; Z88.0 Allergy status to penicillin; Z79.899 Other long term (current) drug therapy; Z87.891 Personal history of nicotine dependence; X58.XXXA Exposure to other specified factors, initial encounter; Y93.89 Activity, other specified; Y92.89 Other specified places as the place of occurrence of the external cause; Y99.8 Other external cause status

== ENCOUNTER → 2019-02-28 | Outpatient (CLI) | payer OTHER ==
[~2019-02-28] MED LIST changes: +NAPROSYN500 MG PO
[2019-02-28 09:35] LABS: HEMATOCRIT 35.6 % (37.0-47.0); MEAN CELL VOLUME 87.9 fl (81.0-99.0); MEAN CORPUSCULAR HGB 29.6 pg (27.0-31.0); MEAN CORPUSCULAR HGB CONC 33.7 g/dl (33.0-37.0); MEAN PLATELET VOLUME 9.2 fl (9.6-12.3); PLATELET COUNT AUTOMATED 201 10*3/uL (130-400); RED BLOOD COUNT 4.05 10*6/uL (4.10-5.10)
[2019-02-28 10:07] LABS: ALBUMIN 3.5 gm/dl (3.1-4.5); ALKALINE PHOSPHATASE 104 U/L (45-117); BUN 9 mg/dl (7-24); CHLORIDE 101 mmol/L (98-107); CHOLESTEROL 220 mg/dL (<200); CREATININE 0.56 mg/dL (0.55-1.02); HDL CHOLESTEROL 42 mg/dl (40-60); IRON 48 ug/dL (50-170); LDL CHOLESTEROL 140 mg/dL (9-159); POTASSIUM 4.1 mmol/L (3.5-5.1); SGOT/AST 15 IU/L (3-35); SGPT/ALT 17 U/L (12-78); SODIUM 137 mmol/L (136-145); TOTAL IRON BINDING CAPACITY 293 ug/dl (250-450); TOTAL PROTEIN 6.9 gm/dL (6.4-8.2); TRIGLYCERIDES 192 mg/dl (<150); VLDL CHOLESTEROL 38 mg/dL (6-40)
[2019-02-28 10:29] LABS: VITAMIN D, 25-HYDROXY 37.4 ng/mL (30-100)
[2019-02-28 11:00] LABS: TOTAL CELLS COUNTED 100 #CELLS
[2019-02-28 11:01] LABS: PLATELET SUFFICIENCY NORMAL (NORMAL)
== END | disposition home or self-care (01) ==
LOC: LAB 08:59
PROVIDERS: Internal Medicine; Psychiatry & Neurology Clinical Neurophysiology
DX: R20.2 Paresthesia of skin (principal); C82.98 Follicular lymphoma, unspecified, lymph nodes of multiple sites; T73.2XXA Exhaustion due to exposure, initial encounter

== ENCOUNTER 2019-09-18 07:22 | Emergency (ER) | payer OTHER ==
[~2019-09-18] VITALS: Ht 162.5 cm; Wt 68.0 kg
[2019-09-18 08:13] LABS: BASO # 0.1 10*3/uL (0.0-0.1); BASO % 0.5 % (0.0-1.0); HEMATOCRIT 41.3 % (37.0-47.0); LYMPH # 0.5 10*3/uL (1.3-4.4); LYMPH % 4.6 % (27.0-41.0); MEAN CORPUSCULAR HGB CONC 34.1 g/dl (33.0-37.0); MEAN PLATELET VOLUME 8.6 fl (9.6-12.3); MONO # 0.6 10*3/uL (0.1-1.0); MONO % 5.7 % (3.0-9.0); NEUT # 9.8 10*3/uL (2.3-7.9); NEUT % 88.9 % (47.0-73.0); PLATELET COUNT AUTOMATED 215 10*3/uL (130-400); RED BLOOD COUNT 4.86 10*6/uL (4.10-5.10); RED CELL DISTRI WIDTH 12.1 % (0-14.5)
[2019-09-18 08:23] LABS: ACT PARTIAL THROMBO TIME 26.4 SECONDS (20.0-32.1); INTERNATIONAL NORM RATIO 0.9 (2.0-3.5)
[2019-09-18 08:30] LABS: ALBUMIN 3.3 gm/dl (3.1-4.5); ALKALINE PHOSPHATASE 100 U/L (45-117); BUN 7 mg/dl (7-24); CHLORIDE 107 mmol/L (98-107); CREATININE 0.65 mg/dL (0.55-1.02); POTASSIUM 3.6 mmol/L (3.5-5.1); SGOT/AST 24 IU/L (3-35); SGPT/ALT 30 U/L (12-78); SODIUM 138 mmol/L (136-145); TOTAL PROTEIN 6.9 gm/dL (6.4-8.2)
[2019-09-18 08:33] LABS: TROPONIN I < 0.015 ng/ml (<0.045)
== END 2019-09-18 10:24 | disposition left against medical advice (07) ==
LOC: ED 07:22
PROVIDERS: Emergency Medicine
DX: R07.9 Chest pain, unspecified (principal); R06.02 Shortness of breath; R11.0 Nausea; I10 Essential (primary) hypertension; F17.200 Nicotine dependence, unspecified, uncomplicated; Z88.0 Allergy status to penicillin; Z79.899 Other long term (current) drug therapy; Z79.2 Long term (current) use of antibiotics; Z90.49 Acquired absence of other specified parts of digestive tract

== ENCOUNTER 2019-11-19 00:50 | Inpatient (IN) | payer MEDICARE, MEDICAID ==
[2019-11-19] VITALS (10 sets, daily range): BP systolic 11–119; BP diastolic 29–78
[~2019-11-19] VITALS: Ht 170.1 cm; Wt 97.7 kg
[~2019-11-19 00:50] MED LIST changes: +PRILOSEC20 M1 PO; -PRILOSEC40 M1 PO
[2019-11-19 01:32] LABS: HEMATOCRIT 31.2 % (37.0-47.0); MEAN CORPUSCULAR HGB 28.7 pg (27.0-31.0); MEAN CORPUSCULAR HGB CONC 33.3 g/dl (33.0-37.0); MEAN PLATELET VOLUME 9.3 fl (9.6-12.3); PLATELET COUNT AUTOMATED 206 10*3/uL (130-400); RED BLOOD COUNT 3.63 10*6/uL (4.10-5.10); RED CELL DISTRI WIDTH 13.3 % (0-14.5); WHITE BLOOD COUNT 9.4 10*3/uL (4.8-10.8)
[2019-11-19 01:33] LABS: VENOUS PH 7.409 (7.32-7.43)
[2019-11-19 01:43] LABS: ACT PARTIAL THROMBO TIME 33.4 SECONDS (20.0-32.1); INTERNATIONAL NORM RATIO 1.2 (2.0-3.5)
[2019-11-19 01:49] LABS: ALKALINE PHOSPHATASE 120 U/L (45-117); BUN 16 mg/dl (7-24); CHLORIDE 97 mmol/L (98-107); CREATININE 0.79 mg/dL (0.55-1.02); POTASSIUM 3.4 mmol/L (3.5-5.1); SGOT/AST 246 IU/L (3-35); SGPT/ALT 107 U/L (12-78); SODIUM 134 mmol/L (136-145); TOTAL PROTEIN 6.5 gm/dL (6.4-8.2)
[2019-11-19 01:53] LABS: PLATELET SUFFICIENCY NORMAL (NORMAL); TOTAL CELLS COUNTED 100 #CELLS
[2019-11-19 01:54] LABS: TROPONIN I < 0.015 ng/ml (<0.045)
--- NOTE | 2019-11-19 04:30 | NUR ---
A 59, admitted to , under the services of YADIRA Smith DO with a diagnosis of MULTIFOCAL PNEUMONIA, SUSPECTED COVID. Chief complaint is WEAKNESS, SHORTNESS OF BREATH, LETHARGY, CHANGE IN MENTAL STATUS. Patient arrived via bed from ER. Monitor applied. Initial assessment completed. Vital signs taken and recorded. YADIRA SMITH DO notified of admission to the unit. Orders received. See assessment for past medical history, medications and allergies. Patient and/or family oriented to unit. [facility] visitation policy reviewed. Clothing/patient valuable form completed. PRAVEEN PALMA
[2019-11-19 04:55] LABS: ABG BASE EXCESS 2.9 mmol/L (-2.0-2.0); ARTERIAL BLOOD GAS PH 7.368 (7.35-7.45)
--- NOTE | 2019-11-19 06:02 | NUR ---
CONSULT CALLED TO DR MARRUFO PER ORDERS.
--- NOTE | 2019-11-19 07:30 | NUR ---
PT SLEEPING IN BED. NO IMMEDIATE S/S OF DISTRESS NOTED. VSS. WHITE BOARD UPDATED. CALL LIGHT WITHIN REACH. BED ALARM ON. 3L OXYGEN INTACT. AUDIBLE RHONCHI/ACCESSORY MUSCLE USE NOTED. PT LETHARGIC/DROWSY. AROUSES EASILY BUT THEN IMMEDIATELY FALLS BACK ASLEEP. PT CONFUSED REAGARDING HOW SHE GOT HERE. REORIENTED NEEDED.
--- NOTE | 2019-11-19 07:34 | NUR ---
INFECTIOUS DISEASE CONSULT CALLED TO ANSWERING SERVICE. MANUFACTURING ENGINEER SUPERVISOR STATES THAT LING GAITAN IS COVERING AND THAT SHE WILL BE NOTIFIED AT 0700.
--- NOTE | 2019-11-19 07:39 | NUR ---
DR YU NOTIFIED THAT WOUND CARE ORDERS ARE NEEDED FOR ABRASIONS TO BILATERAL KNEES.
[2019-11-19 07:41] LABS: BASO % 0.4 % (0.0-1.0); HEMATOCRIT 32.8 % (37.0-47.0); LYMPH # 0.4 10*3/uL (1.3-4.4); LYMPH % 5.1 % (27.0-41.0); MEAN CELL VOLUME 88.4 fl (81.0-99.0); MEAN CORPUSCULAR HGB 29.1 pg (27.0-31.0); MEAN CORPUSCULAR HGB CONC 32.9 g/dl (33.0-37.0); MEAN PLATELET VOLUME 9.1 fl (9.6-12.3); MONO # 0.6 10*3/uL (0.1-1.0); MONO % 6.6 % (3.0-9.0); NEUT # 7.4 10*3/uL (2.3-7.9); NEUT % 87.5 % (47.0-73.0); PLATELET COUNT AUTOMATED 203 10*3/uL (130-400); RED BLOOD COUNT 3.71 10*6/uL (4.10-5.10); RED CELL DISTRI WIDTH 13.4 % (0-14.5); WHITE BLOOD COUNT 8.5 10*3/uL (4.8-10.8)
[2019-11-19 08:13] LABS: ALKALINE PHOSPHATASE 129 U/L (45-117); BUN 13 mg/dl (7-24); CHLORIDE 100 mmol/L (98-107); POTASSIUM 3.4 mmol/L (3.5-5.1); SGOT/AST 247 IU/L (3-35); SGPT/ALT 116 U/L (12-78); SODIUM 136 mmol/L (136-145); TOTAL PROTEIN 6.9 gm/dL (6.4-8.2)
[2019-11-19 08:16] LABS: INTERNATIONAL NORM RATIO 1.1 (2.0-3.5)
[2019-11-19 08:19] LABS: THYROID STIM HORMONE (HS) 0.679 uIU/ml (0.358-4.75)
--- NOTE | 2019-11-19 09:45 | NUR ---
PT CHANGED,CASSIDY CARE PROVIDED. ATTEMPTED TO AROUSE PT TO EAT HER BREAKFAST. UNABLE TO REMAIN AWAKE LONG ENOUGH TO CHEW AND SWALLOW. WILL REATTEMPT. BED ALARM ON. CALL LIGHT WITHIN REACH.
--- NOTE | 2019-11-19 10:16 | NUR ---
DR VERONICA IN TO SEE PT
--- NOTE | 2019-11-19 10:48 | NUR ---
ATTEMPTED TO REACH PTS PHARMACY-[facility]- TO COMPLETE MED REC. THEY ARE CLOSED AT THIS TIME AND WILL REOPEN TOMORROW MORNING AT 9AM.
--- NOTE | 2019-11-19 12:48 | NUR ---
IN TO DO BLOOD DRAW. PT AROUSES MORE EASILY NOW. URINE OBTAINED. PT MORE ALERT. ABLE TO ANSWER SOME QUESTIONS AT THIS TIME. 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 LAST CHEMO TX WAS ABOUT A MONTH AGO.
--- NOTE | 2019-11-19 13:06 | NUR ---
CALLED INTO PTS ROOM. PT CRYING BEGGING NURSE TO TURN OFF POTASSIUM BECAUSE ITS BURNING. SHUT IT OFF. LINE FLUSHED. EXPLAINED TO PT THAT I COULD SLOW IT DOWN SO IT DID NOT BURN BAD. STATES NO SHE DOES NOT WANT IT AT ALL AND THAT HER POTASSIUM IS ALWAYS LOW.
[2019-11-19 13:17] LABS: URINE AMPHETAMINES < 1000 (1000ng/ml); URINE BARBITURATES < 200 (200ng/ml); URINE BENZODIAZEPINES < 200 (200ng/ml); URINE CANNABINOIDS (THC) < 50 (50ng/ml); URINE COCAINE < 300 (300ng/ml); URINE METHADONE < 300 (300ng/ml); URINE OPIATES > 300 (300ng/ml); URINE PHENCYCLIDINE < 25 (25ng/ml)
[2019-11-19 13:21] LABS: BILIRUBIN NEGATIVE (NEGATIVE); BLOOD 1+ (NEGATIVE); CLARITY SL CLOUDY (CLEAR); COLOR YELLOW (YELLOW); GLUCOSE NEGATIVE (NEGATIVE); KETONE NEGATIVE (NEGATIVE); LEUKO ESTERASE NEGATIVE (NEGATIVE); MUCOUS TRACE; NITRITE NEGATIVE (NEGATIVE); RBC 0-2 rbc/hpf (0-2); UROBILINOGEN 0.2 E.U./dl (0.2-1.0)
--- NOTE | 2019-11-19 16:16 | NUR ---
BOTH Hep Lock discontinued. Site asymptomatic. Pressure applied. Sterile dressing applied. ARIELLA ANDERSON RIGHT CHEST MEDIPORT ACCESSED
--- NOTE | 2019-11-19 17:02 | NUR ---
PT SITTING UP IN BED. VOICES NO CONCERNS AT THIS TIME. RESPS NON LABORED. NO IMMEDIATE S/S OF DISTRESS. 3L OXYGEN INTACT. VSS. BLOOD PRESSURE IMPROVING. PT IS A/O X3. NO LONGER LETHARGIC/DROWSY. PT STATES MOST OF YESTERDAY IS BLURR TO HER. NO ACCESSORY MUSCLE USE OR AUDIBLE ADVENTITIOUS LUNG SOUNDS NOTED. CONTINUES TO HAVE RHONCHI T/O ON AUSCULTATION. WHEN ASKED ABOUT HOME MEDICATIONS PT STATES SHE IS NOT SURE WHAT SHE TAKES. WILL CALL PHARMACY TOMORROW. ALSO EXPLAINED TO PT THAT DR MARRUFO WANTED [facility], PT STATES SHE DOES NOT WISH TO BE ATTACHED TO THAT MANY WIRES.WILL CONTINUE TO MONITOR. CALL LIGHT WITHIN REACH. BED ALARM ON.
--- NOTE | 2019-11-19 18:00 | NUR ---
PT SITTING UP IN BED EATING DINNER. RESPS EASY AND NON LABORED. NO S/S OF DISTRESS NOTED. OXYGEN INTACT. PT STATES SHE IS REALLY TIRED. WILL CONTINUE TO MONITOR. CALL LIGHT WITHIN REACH. BED ALARMO ON .
--- NOTE | 2019-11-19 19:30 | NUR ---
PATIENT RESTING IN BED. ALERT AND ORIENTED AT THIS TIME. DENIES ANY N/V/D AT THIS TIME. STATES SHE HAS FELT SOME NAUSEA THROUGHOUT THE DAY. ASSESSMENT COMPLETE. VSS. CO SOB WITH EXERTION ONLY. POX 95%, 3L NC IN PLACE. CALL LIGHT WIHTIN REACH. WILL MONITOR.
--- NOTE | 2019-11-19 21:19 | NUR ---
PATIENT REQUESTING SOMETHING TO HELP HER SLEEP. MEDICATED WITH PRN RESOTRIL WILL ASSESS EFFECTIVENESS.CALL LIGHT WITHIN REACH.
[2019-11-19] MEDS ORDERED: LISINOPRIL10 M1 PO (21:53)
--- NOTE | 2019-11-19 22:00 | NUR ---
PATIENT OPENED UP THE DOOR TO HER ROOM AND WAS TOLD NOT TO DO THAT AND THAT SHE HAD TO STAY IN HER ROOM AND EDUCATED ON WHY. WENT IN PATIENTS ROOM WITH PATIENT AND TALKED TO HER AND EXPLAINED WHY SHE NEEDED TO STAY IN HER ROOM AND WHY SHE IS IN ISOLATION. PATIENT WAS GETTING NASTY WITH ME AND THEN AFTER TALKING WITH PATIENT SHE STATED SHE WAS SORRY AND THAT SHE UNDERSTOOD SHE HAD TO STAY IN HER ROOM AND KEEP HER DOOR CLOSED AND THAT SHE WOULD DO SO.
[2019-11-19] MEDS ORDERED: Ondansetron8 MG PO (22:11)
[2019-11-19] MEDS ORDERED: LYRICA150 M1 PO (22:11)
[2019-11-19] MEDS ORDERED: QUETIAPINE FUM100 M1 PO (22:12)
[2019-11-19] MEDS ORDERED: AMITRIPTYLINE H10 M1 PO (22:12)
--- NOTE | 2019-11-19 22:14 | NUR ---
INFORMED THAT HOME MEDICATIONS VERIFIED BY CLIM HISTORY. PATIENT IS ANGRY AND GIVING CURRENT NURSE DIFFICULT TIME AND BEING INNAPPROPIATE TO NURSE. NURSE IS CURRENTLY IN ROOM TRYING TO DEESCULATE SITUATION. PATIENT IS WANTING HOME MEDS AND SOMETHING FOR NAUSEA. MILAN STATED OK, HE WILL LOOK AT MEDS.
--- NOTE | 2019-11-19 22:19 | NUR ---
PER PATIENT SLEEPING PILL IS STATING TO TAKE EFFECT.
--- NOTE | 2019-11-19 23:02 | NUR ---
PATIENT CO NAUSEA AND REQUESTING SOMETHING FOR IT. INFORMED. PER DR. DURAN JUST GIVE PATIENTS PRILOSEC DOSE TO HER NOW SINCE SHE MISSED IT TODAY. PRILOSEC GIVEN AT THIS TIME.
[2019-11-20] VITALS: BP 128/73
--- NOTE | 2019-11-20 01:36 | NUR ---
PATIENT SLEEPING. RESPS EASY AND REGULAR. CALL LIGHT WIHTIN REACH.
--- NOTE | 2019-11-20 01:41 | NUR ---
24 HR chart check completed.
[2019-11-20 05:48] LABS: ALBUMIN 2.4 gm/dl (3.1-4.5); ALKALINE PHOSPHATASE 109 U/L (45-117); BUN 7 mg/dl (7-24); CHLORIDE 105 mmol/L (98-107); CREATININE 0.48 mg/dL (0.55-1.02); POTASSIUM 3.6 mmol/L (3.5-5.1); SGOT/AST 148 IU/L (3-35); SGPT/ALT 91 U/L (12-78); SODIUM 138 mmol/L (136-145); TOTAL PROTEIN 5.8 gm/dL (6.4-8.2)
--- NOTE | 2019-11-20 07:27 | NUR ---
Shift chart check completed.
--- NOTE | 2019-11-20 07:30 | NUR ---
PT RESTING IN BED. VOICES NO CONCERNS AT THIS TIME. RESPS EASY AND NON LABORED. NO S/S OF DISTRESS. 3L NC. VSS. WHITE BOARD UPDATED. POC DISCUSSED W PT. CALL LIGHT WITHIN REACH. PT STATES NIGHT TIME NURSE HARDLY CHECKED ON HER. EXPLAINED THAT DUE TO POSSIBILITY OF COVID-19 TIME SPENT IN PT ROOMS MUST BE LIMITED. ALSO EXPLAINED THAT WE CAN VISUALIZE HER AT ALL TIMES VIA CAMERA IN ROOM AND THAT IF SHE NEEDED ANYTHING TO PRESS HER CALL LIGHT. PT STATES SHE UNDERSTANDS. WILL CONTINUE TO MONITOR
[2019-11-20 08:00] VITALS: BP 119/70
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
[2019-11-20 08:32] LABS: ABG BASE EXCESS 3.3 mmol/L (-2.0-2.0); ARTERIAL BLOOD GAS PH 7.468 (7.35-7.45)
--- NOTE | 2019-11-20 08:42 | NUR ---
Patient states that she will care for wounds at home when discharged.
--- NOTE | 2019-11-20 09:00 | NUR ---
[employer] in to talk to patient. Patient states lives at home with alone. There are 20 steps in the home. Physician: harsha jung Pharmacy: mail Home health services: none Patient's level of ADLs: MINIMAL ASSIST Patient has working utilities: all working DME: none Follow-up physician's appointment after d/c: will be made by hospitalist nurse director upon discharge Does patient want to access PORTAL?: no Discharge plan discussed with patient, she lives at home, gets around fine, states she will return home when discharged, and denies any home needs at this time case management will follow. BECKA HARMON
[2019-11-20 09:47] LABS: BASO % 0.4 % (0.0-1.0); HEMATOCRIT 31.6 % (37.0-47.0); LYMPH # 0.4 10*3/uL (1.3-4.4); LYMPH % 5.6 % (27.0-41.0); MEAN CELL VOLUME 87.5 fl (81.0-99.0); MEAN CORPUSCULAR HGB 28.8 pg (27.0-31.0); MEAN CORPUSCULAR HGB CONC 32.9 g/dl (33.0-37.0); MEAN PLATELET VOLUME 9.8 fl (9.6-12.3); MONO # 0.4 10*3/uL (0.1-1.0); MONO % 6.2 % (3.0-9.0); NEUT # 6.3 10*3/uL (2.3-7.9); NEUT % 87.5 % (47.0-73.0); PLATELET COUNT AUTOMATED 201 10*3/uL (130-400); RED BLOOD COUNT 3.61 10*6/uL (4.10-5.10); RED CELL DISTRI WIDTH 13.3 % (0-14.5); WHITE BLOOD COUNT 7.1 10*3/uL (4.8-10.8)
--- NOTE | 2019-11-20 10:15 | NUR ---
DR MARRUFO INTO SEE PT
--- NOTE | 2019-11-20 10:40 | NUR ---
PT GIVEN INCENTIVE SPIROMETER. INSTRUCTED ON USE/FREQUENCY. RETURN DEMONSTRATION PERFORMED. PT VERBALIZED UNDERSTANDING/RATIONALE FOR USE.
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
--- NOTE | 2019-11-20 11:36 | NUR ---
[facility] TO FAX MEDICATION LIST TO CONFIRM HOME MEDICATIONS
[2019-11-20 12:00] VITALS: BP 129/76
--- NOTE | 2019-11-20 13:03 | NUR ---
CALLED [facility] AGAIN REGARDING MED LIST. STATE THEY WILL FAX IT AGAIN.
--- NOTE | 2019-11-20 13:24 | NUR ---
MED REC VERIFIED W [facility]
--- NOTE | 2019-11-20 13:36 | NUR ---
PER DR GARCÍA-PT NEEDS RESWABBED FOR COVID AND SENT TO [facility]. ALSO STATES SHE WOULD LIKE FOR PT TO BE RAPID TESTED.INFORMED DR GARCÍA THAT WE WERE NO LONGER DO THEM AND SHE STATES TO SEE IF THERE IS ONE IN THE BUILDING AND TO USE IT REGARDLESS. CALLED LAB AND PHARMACY WHO BOTH STATE PER PRIME, WE ARE NOT DOING THEM ANYMORE. CALLED CHEMICAL ANALYTICAL SAMPLER TO INFORM OF SITUATION. STATES SHE WILL CALL BACK.
--- NOTE | 2019-11-20 13:40 | NUR ---
PER NURSING COMMERCIAL DRONE PILOT, DR GARCÍA AND DR VERONICA WANT PT RE-COVID SWABBED AND SENT TO BOTH [facility] AND [facility].
--- NOTE | 2019-11-20 14:09 | NUR ---
PT C/O ANXIETY. DR VENTURA STATES TO PUT IN VISTARIL 25MG Q8H PRN.
--- NOTE | 2019-11-20 14:35 | NUR ---
PT MEDICATED FOR C/O ANXIETY. WILL CONTINUE TO MONITOR. CALL LIGHT WITHIN REACH.R ESPS EASY AND NON LABORED.
--- NOTE | 2019-11-20 15:00 | NUR ---
COVID-19 SWABS COLLECTED AT THIS TIME
--- NOTE | 2019-11-20 15:20 | NUR ---
LAB CALLED. STATE THEY CAN NOT SEND OUT OD COVID SWABS PER DR VERONICA. EXPLAINED THAT DR VERONICA, DR GARCÍA AND DR MARRUFO WANTED THIS PTS COVID SWAB SENT THERE. STATED SHE WOULD HAVE TO FIND OUT. FORMULA MIXER NOTIFIED AT THIS TIME.
--- NOTE | 2019-11-20 15:38 | NUR ---
SPOKE WITH DR VENTURA AND EXPLAINED TO HIM THE SITUATION REAGRDING THE [facility] COVID SWAB. STATES HE WILL CALL DR VERONICA.
--- NOTE | 2019-11-20 15:40 | NUR ---
PER DR LORENZO GLOVER IN THE LAB AND UPDATE HIM ON SITUATION.
--- NOTE | 2019-11-20 15:48 | NUR ---
PER ADALBERTO IN THE LAB, BOTH SWABS WILL BE SENT. [facility] WILL PICK THERES UP TOMORROW
[2019-11-20 16:00] VITALS: BP 149/73
--- NOTE | 2019-11-20 16:30 | NUR ---
CALLED PHARMACY FOR REMDESIRVIR. STATE THEY WILL SEND IT UP.
--- NOTE | 2019-11-20 17:11 | NUR ---
STILL WAITING FOR REMDESIVIR FROM PHARMACY
--- NOTE | 2019-11-20 19:24 | NUR ---
24 HR CHART CHECK COMPLETE.
[2019-11-20 20:00] VITALS: BP 146/75
[2019-11-21] VITALS: BP 115/63
[2019-11-21 06:09] LABS: ALBUMIN 2.6 gm/dl (3.1-4.5); ALKALINE PHOSPHATASE 113 U/L (45-117); BUN 7 mg/dl (7-24); CHLORIDE 101 mmol/L (98-107); CREATININE 0.44 mg/dL (0.55-1.02); POTASSIUM 3.4 mmol/L (3.5-5.1); SGOT/AST 71 IU/L (3-35); SGPT/ALT 77 U/L (12-78); SODIUM 137 mmol/L (136-145); TOTAL PROTEIN 6.1 gm/dL (6.4-8.2)
[2019-11-21 08:00] VITALS: BP 110/62
--- NOTE | 2019-11-21 08:00 | NUR ---
Patient resting quietly with no c/o discomfort. Respirations easy and regular. Vital signs stable. No overt distress. NICANOR KWOK
[2019-11-21 08:11] LABS: HEP B CORE AB, IGM Negative (Negative); HEPATITIS B SURFACE AG Negative (Negative); HEPATITIS C VIRUS ANTIBODY <0.1 s/co (0.0-0.9)
[2019-11-21 11:45] LABS: BASO % 0.3 % (0.0-1.0); HEMATOCRIT 29.2 % (37.0-47.0); LYMPH # 0.3 10*3/uL (1.3-4.4); LYMPH % 5.6 % (27.0-41.0); MEAN CORPUSCULAR HGB 29.2 pg (27.0-31.0); MEAN CORPUSCULAR HGB CONC 33.2 g/dl (33.0-37.0); MEAN PLATELET VOLUME 10.2 fl (9.6-12.3); MONO # 0.5 10*3/uL (0.1-1.0); MONO % 8.4 % (3.0-9.0); NEUT # 4.9 10*3/uL (2.3-7.9); NEUT % 85.4 % (47.0-73.0); PLATELET COUNT AUTOMATED 188 10*3/uL (130-400); RED BLOOD COUNT 3.32 10*6/uL (4.10-5.10); RED CELL DISTRI WIDTH 13.7 % (0-14.5); WHITE BLOOD COUNT 5.7 10*3/uL (4.8-10.8)
[2019-11-21 12:00] VITALS: BP 108/72
--- NOTE | 2019-11-21 12:00 | NUR ---
Patient resting quietly with no c/o discomfort. Respirations easy and regular. Vital signs stable. No overt distress. NICANOR KWOK
[2019-11-21 16:00] VITALS: BP 131/78
--- NOTE | 2019-11-21 17:16 | NUR ---
DR ALVARES NOTIFIED OF PT'S REFUSAL TO HAVE RESP VIRAL PANEL COMPLETED AND REQUEST FOR "SWISH AND SWALLOW" FOR WHITE ULCERATIONS NOTED TO TONGUE.
[2019-11-21 20:00] VITALS: BP 118/69
--- NOTE | 2019-11-21 20:00 | NUR ---
PT RESTING IN BED WATCHING, A&OX3, PLESANT AND COOPERATIVE WITH STAFF. RESP NONLABORED. NO ACUTE DISTRESS NOTED. NO COMPLAINTS VOICED. DENIES ANY PAIN OR DISCOMFORT AT THIS TIME. RIGHT MEDIPORT PATENT, DRESSING DRY AND INTACT.
[2019-11-22] VITALS: BP 131/79
[2019-11-22 04:00] VITALS: BP 110/63
[2019-11-22 06:30] LABS: ALBUMIN 2.5 gm/dl (3.1-4.5); ALKALINE PHOSPHATASE 112 U/L (45-117); BUN 10 mg/dl (7-24); CHLORIDE 102 mmol/L (98-107); CREATININE 0.41 mg/dL (0.55-1.02); LDH 484 U/L (84-246); POTASSIUM 3.5 mmol/L (3.5-5.1); SGOT/AST 41 IU/L (3-35); SGPT/ALT 64 U/L (12-78); SODIUM 135 mmol/L (136-145); TOTAL PROTEIN 6.2 gm/dL (6.4-8.2)
[2019-11-22 08:00] VITALS: BP 117/64
--- NOTE | 2019-11-22 09:00 | NUR ---
case management talked with patient via phone, again discussed a discharge plan including a short term long term for 5 days of therpay vs home health with 3 days of therapy. she stated she would return home when discharged, she didn't feel she was weak enough to need go to a short term long term and she also didn't feel she needed VNA. case management will follow for any home needs
--- NOTE | 2019-11-22 09:15 | NUR ---
MEDIPORT SITE WILL NO LONGER GIVE BLOOD. AM CBC WAS CLOTTED PER LAB. X1 ATTEMPT BY RN TO DRAW PERIPHERALLY, VEIN BLEW WITH BACK-PRESSURE FROM TOURNIQUET. PT REFUSING ANOTHER ATTEMPT AND REFUSING TO LET RN REACCESS MEDIPORT. DR MARRUFO AWARE.
[2019-11-22 12:00] VITALS: BP 125/69
--- NOTE | 2019-11-22 12:00 | NUR ---
Patient resting quietly with no c/o discomfort. Respirations easy and regular. Vital signs stable. No overt distress. NICANOR KWOK
--- NOTE | 2019-11-22 12:26 | NUR ---
DR GARCÍA IN TO SEE PT, OK FOR D/C AND HOME QUARANTINE AT ANY POINT.
--- NOTE | 2019-11-22 16:34 | NUR ---
DR JESUS NOTIFIED THAT PT WANTS TO LEAVE AMA.
[2019-11-22] MEDS ORDERED: LEVAQUIN750 M1 PO (16:44)
--- NOTE | 2019-11-22 16:58 | NUR ---
REFUSING D/C WOUND PHOTOS.
--- NOTE | 2019-11-22 17:20 | NUR ---
LEAVING VIA WHEELCHAIR.
== END 2019-11-22 17:20 | disposition home or self-care (01) | DRG 193 ==
LOC: ED 00:50 → EDHOLD 02:33 → 4E 02:33
PROVIDERS: Emergency Medicine Emergency Medical Services; Internal Medicine Critical Care Medicine; Student in an Organized Health Care Education/Training Program; ADMIT Internal Medicine
DX: J18.1 Lobar pneumonia, unspecified organism (principal); J96.01 Acute respiratory failure with hypoxia; G93.41 Metabolic encephalopathy; E43 Unspecified severe protein-calorie malnutrition; J44.0 Chronic obstructive pulmonary disease with (acute) lower respiratory infection; C85.90 Non-Hodgkin lymphoma, unspecified, unspecified site; D68.59 Other primary thrombophilia; D64.9 Anemia, unspecified; E87.6 Hypokalemia; F32.9 Major depressive disorder, single episode, unspecified; K21.9 Gastro-esophageal reflux disease without esophagitis; Z20.828 Contact with and (suspected) exposure to other viral communicable diseases; I25.10 Atherosclerotic heart disease of native coronary artery without angina pectoris; E53.8 Deficiency of other specified B group vitamins; F17.200 Nicotine dependence, unspecified, uncomplicated; E83.51 Hypocalcemia; R74.0 Nonspecific elevation of levels of transaminase and lactic acid dehydrogenase [LDH]; R73.9 Hyperglycemia, unspecified; Z95.5 Presence of coronary angioplasty implant and graft; Z88.0 Allergy status to penicillin; Z90.49 Acquired absence of other specified parts of digestive tract; Z79.899 Other long term (current) drug therapy; Z82.49 Family history of ischemic heart disease and other diseases of the circulatory system; Z80.41 Family history of malignant neoplasm of ovary; Z80.0 Family history of malignant neoplasm of digestive organs; Z68.33 Body mass index [BMI] 33.0-33.9, adult

== ENCOUNTER 2020-02-06 02:57 | Emergency (ER) | payer MEDICARE, MEDICAID ==
[~2020-02-06] VITALS: Wt 79.5 kg
[~2020-02-06 02:57] MED LIST changes: +AMITRIPTYLINE H10 M1 PO; +LEVAQUIN750 M1 PO; +LISINOPRIL10 M1 PO; +LYRICA150 M1 PO; +Ondansetron8 MG PO; +QUETIAPINE FUM100 M1 PO
[2020-02-06 03:49] LABS: BASO # 0.1 10*3/uL (0.0-0.1); BASO % 0.5 % (0.0-1.0); EOS # 0.4 10*3/uL (0.0-0.4); EOS % 3.1 % (1.0-4.0); HEMATOCRIT 40.3 % (37.0-47.0); LYMPH # 1.5 10*3/uL (1.3-4.4); LYMPH % 12.9 % (27.0-41.0); MEAN CELL VOLUME 87.4 fl (81.0-99.0); MEAN CORPUSCULAR HGB 28.2 pg (27.0-31.0); MEAN CORPUSCULAR HGB CONC 32.3 g/dl (33.0-37.0); MEAN PLATELET VOLUME 9.4 fl (9.6-12.3); MONO # 0.9 10*3/uL (0.1-1.0); MONO % 7.8 % (3.0-9.0); NEUT # 8.6 10*3/uL (2.3-7.9); NEUT % 75.3 % (47.0-73.0); PLATELET COUNT AUTOMATED 211 10*3/uL (130-400); RED BLOOD COUNT 4.61 10*6/uL (4.10-5.10); WHITE BLOOD COUNT 11.5 10*3/uL (4.8-10.8)
[2020-02-06 04:07] LABS: ALBUMIN 3.7 gm/dl (3.1-4.5); ALKALINE PHOSPHATASE 118 U/L (45-117); BUN 5 mg/dl (7-24); CHLORIDE 104 mmol/L (98-107); CREATININE 0.83 mg/dL (0.55-1.02); POTASSIUM 3.3 mmol/L (3.5-5.1); SGOT/AST 19 IU/L (3-35); SGPT/ALT 24 U/L (12-78); SODIUM 134 mmol/L (136-145); TOTAL PROTEIN 7.6 gm/dL (6.4-8.2)
[2020-02-06 04:07] LABS: BILIRUBIN NEGATIVE; BLOOD 1+ (NEGATIVE); CLARITY CLEAR (CLEAR); COLOR YELLOW (YELLOW); GLUCOSE NEGATIVE; KETONE NEGATIVE; NITRITE NEGATIVE (NEGATIVE); SPECIFIC GRAVITY 1.015 (1.001-1.030)
[2020-02-06 04:08] LABS: LEUKO ESTERASE NEGATIVE (NEGATIVE)
[2020-02-06 04:10] LABS: TROPONIN I < 0.015 ng/ml (<0.045)
[2020-02-06 04:14] LABS: URINE AMPHETAMINES < 1000 (1000ng/ml); URINE BARBITURATES < 200 (200ng/ml); URINE BENZODIAZEPINES < 200 (200ng/ml); URINE CANNABINOIDS (THC) < 50 (50ng/ml); URINE COCAINE < 300 (300ng/ml); URINE METHADONE < 300 (300ng/ml); URINE OPIATES < 300 (300ng/ml); URINE PHENCYCLIDINE < 25 (25ng/ml)
[2020-02-06 04:18] LABS: BACTERIA 1+
== END 2020-02-06 05:56 | disposition left against medical advice (07) ==
LOC: ED 02:57
PROVIDERS: Emergency Medicine
DX: R56.9 Unspecified convulsions (principal); E87.2 Acidosis; I25.10 Atherosclerotic heart disease of native coronary artery without angina pectoris; K21.9 Gastro-esophageal reflux disease without esophagitis; F17.200 Nicotine dependence, unspecified, uncomplicated; Z88.0 Allergy status to penicillin; Z79.899 Other long term (current) drug therapy

== ENCOUNTER → 2022-08-24 | Outpatient (CLI) | payer OTHER, MEDICAID ==
[2022-08-24 12:18] LABS: HEMATOCRIT 40.3 % (37.0-47.0); LYMPH # 1.5 10*3/uL (1.3-4.4); LYMPH % 37.5 % (27.0-41.0); MEAN CELL VOLUME 83.6 fl (81.0-99.0); MEAN CORPUSCULAR HGB 28.6 pg (27.0-31.0); MEAN CORPUSCULAR HGB CONC 34.2 g/dl (33.0-37.0); MEAN PLATELET VOLUME 9.7 fl (9.6-12.3); MONO # 0.3 10*3/uL (0.1-1.0); MONO % 7.2 % (3.0-9.0); NEUT # 2.1 10*3/uL (2.3-7.9); PLATELET COUNT AUTOMATED 156 10*3/uL (130-400); RED BLOOD COUNT 4.82 10*6/uL (4.10-5.10); RED CELL DISTRI WIDTH 11.9 % (0-14.5); RETICULOCYTE % 1.81 % (0.50-2.50); WHITE BLOOD COUNT 3.9 10*3/uL (4.8-10.8)
[2022-08-24 12:48] LABS: ALKALINE PHOSPHATASE 96 U/L (46-116); BUN 7 mg/dl (9-23); CHLORIDE 100 mmol/L (98-107); LDH 169 U/L (120-246); SGPT/ALT 27 U/L (10-49); TOTAL PROTEIN 6.6 gm/dL (6.0-8.0)
[2022-08-25 06:07] LABS: IMMUNOGLOBULIN G, QNT 551 mg/dL (586-1602); IMMUNOGLOBULIN M, QNT 329 mg/dL (26-217)
== END | disposition home or self-care (01) ==
LOC: LAB 11:37
PROVIDERS: ATTEND Physician Assistant
DX: Z51.12 Encounter for antineoplastic immunotherapy (principal); C83.09 Small cell B-cell lymphoma, extranodal and solid organ sites; J98.4 Other disorders of lung

== ENCOUNTER 2024-08-14 12:22 | Emergency (ER) | payer OTHER ==
[~2024-08-14] VITALS: Ht 162.5 cm; Wt 70.8 kg
[2024-08-14 13:08] LABS: BASO # 0.1 10*3/uL (0.0-0.1); EOS # 0.2 10*3/uL (0.0-0.4); EOS % 2.5 % (1.0-4.0); HEMATOCRIT 38.6 % (37.0-47.0); MEAN CELL VOLUME 83.7 fl (81.0-99.0); MEAN CORPUSCULAR HGB 28.6 pg (27.0-31.0); MEAN CORPUSCULAR HGB CONC 34.2 g/dl (33.0-37.0); MEAN PLATELET VOLUME 8.8 fl (9.6-12.3); MONO # 0.5 10*3/uL (0.1-1.0); MONO % 5.8 % (3.0-9.0); NEUT # 5.6 10*3/uL (2.3-7.9); NEUT % 68.5 % (47.0-73.0); PLATELET COUNT AUTOMATED 243 10*3/uL (130-400); RED BLOOD COUNT 4.61 10*6/uL (4.10-5.10); RED CELL DISTRI WIDTH 11.6 % (0-14.5); WHITE BLOOD COUNT 8.1 10*3/uL (4.8-10.8)
[2024-08-14 13:18] LABS: ACT PARTIAL THROMBO TIME 27.6 SECONDS (20.0-32.1)
[2024-08-14 13:29] LABS: ALKALINE PHOSPHATASE 96 U/L (46-116); BUN 10 mg/dl (9-23); CHLORIDE 103 mmol/L (98-107); POTASSIUM 3.3 mmol/L (3.4-5.1); SGPT/ALT 14 U/L (5-49)
[2024-08-14] MEDS ORDERED: MAGNESIUM SULFATE 50 ML IV ONE (14:00)
[2024-08-14] MEDS ORDERED: MAGNESIUM OXIDE 400 MG TAB PO ONE (14:00)
[2024-08-14] MEDS ORDERED: POTASSIUM CHLORIDE 20 MEQ TAB PO ONE (14:00)
[2024-08-14] MEDS ORDERED: MAGNESIUM400 MG PO (14:04)
== END 2024-08-14 14:12 | disposition home or self-care (01) ==
LOC: ED 12:22
PROVIDERS: Internal Medicine
DX: M19.042 Primary osteoarthritis, left hand (principal); E83.42 Hypomagnesemia; Z53.29 Procedure and treatment not carried out because of patient's decision for other reasons; Z88.0 Allergy status to penicillin; Z90.49 Acquired absence of other specified parts of digestive tract; Z98.890 Other specified postprocedural states; F17.200 Nicotine dependence, unspecified, uncomplicated

== ENCOUNTER 2024-09-03 12:07 | Emergency (ER) | payer OTHER ==
[~2024-09-03] VITALS: Ht 160 cm; Wt 74.2 kg
[~2024-09-03 12:07] MED LIST changes: +MAGNESIUM400 MG PO
[2024-09-03] MEDS ORDERED: OXYCODONE-ACET1 EAC3 PO (12:15)
[2024-09-03] MEDS ORDERED: Albuterol Sulfate 2.5 MG/3 ML VIAL NEB ONE (12:20)
[2024-09-03] MEDS ORDERED: Ketorolac Tromethamine 15 MG/ML VIAL IV ONE (12:20)
[2024-09-03] MEDS ORDERED: methylPREDNISolone sod succ 125 MG VIAL IV ONE (12:20)
[2024-09-03] MEDS ORDERED: SODIUM CHLORIDE 0.9% 1,000 ML IV ONE (12:20)
[2024-09-03 12:40] LABS: BASO # 0.1 10*3/uL (0.0-0.1); BASO % 0.5 % (0.0-1.0); EOS # 0.1 10*3/uL (0.0-0.4); EOS % 1.1 % (1.0-4.0); HEMATOCRIT 31.9 % (37.0-47.0); MEAN CELL VOLUME 85.3 fl (81.0-99.0); MEAN CORPUSCULAR HGB 28.9 pg (27.0-31.0); MEAN CORPUSCULAR HGB CONC 33.9 g/dl (33.0-37.0); MEAN PLATELET VOLUME 9.1 fl (9.6-12.3); MONO # 0.8 10*3/uL (0.1-1.0); MONO % 6.8 % (3.0-9.0); NEUT # 8.6 10*3/uL (2.3-7.9); PLATELET COUNT AUTOMATED 243 10*3/uL (130-400); RED BLOOD COUNT 3.74 10*6/uL (4.10-5.10); RED CELL DISTRI WIDTH 11.9 % (0-14.5); WHITE BLOOD COUNT 11.1 10*3/uL (4.8-10.8)
[2024-09-03 13:01] LABS: BUN 9 mg/dl (9-23); CHLORIDE 94 mmol/L (98-107)
[2024-09-03] MEDS ORDERED: POTASSIUM CHLORIDE 20 MEQ TAB PO ONE (13:10)
[2024-09-03] MEDS ORDERED: PREDNISONE20 M1 PO (13:14)
[2024-09-03] MEDS ORDERED: AVPAK AZITHROM250 M1 PO (13:14)
[2024-09-03] MEDS ORDERED: WELLBUTRIN SR100 MG PO (13:14)
== END 2024-09-03 13:30 | disposition home or self-care (01) ==
LOC: ED 12:07
PROVIDERS: Emergency Medicine
DX: J40 Bronchitis, not specified as acute or chronic (principal); Z20.822 Contact with and (suspected) exposure to COVID-19; I25.10 Atherosclerotic heart disease of native coronary artery without angina pectoris; I10 Essential (primary) hypertension; E78.5 Hyperlipidemia, unspecified; F17.290 Nicotine dependence, other tobacco product, uncomplicated; Z88.0 Allergy status to penicillin; Z79.899 Other long term (current) drug therapy; Z90.49 Acquired absence of other specified parts of digestive tract; Z95.5 Presence of coronary angioplasty implant and graft

== ENCOUNTER 2025-03-26 12:12 | Observation (INO) | payer OTHER ==
[~2025-03-26] VITALS: Ht 162.6 cm; Wt 73.9 kg
[2025-03-26] VITALS (10 sets, daily range): BP systolic 128–216; BP diastolic 73–114
[~2025-03-26 12:12] MED LIST changes: +AVPAK AZITHROM250 M1 PO; +OXYCODONE-ACET1 EAC3 PO; +PREDNISONE20 M1 PO; +WELLBUTRIN SR100 MG PO
[2025-03-26] MEDS ORDERED: BUSPAR5 MG PO (12:26)
[2025-03-26] MEDS ORDERED: MAGNESIUM400 M1 PO (12:26)
[2025-03-26] MEDS ORDERED: Ondansetron Hydrochloride 4 MG/2 ML VIAL IV ONE (12:50)
[2025-03-26 12:58] LABS: BASO # 0.1 10*3/uL (0.0-0.1); BASO % 1.0 % (0.0-1.0); EOS # 0.2 10*3/uL (0.0-0.4); EOS % 3.3 % (1.0-4.0); MEAN CELL VOLUME 87.3 fl (81.0-99.0); MEAN CORPUSCULAR HGB 29.9 pg (27.0-31.0); MEAN PLATELET VOLUME 9.3 fl (9.6-12.3); MONO # 0.4 10*3/uL (0.1-1.0); MONO % 6.4 % (3.0-9.0); NEUT # 3.8 10*3/uL (2.3-7.9); NEUT % 62.2 % (47.0-73.0); NUCLEATED RED BLOOD CELL 0.0 % (0.0-0.0); NUCLEATED RED BLOOD CELL 0.0 10*3/uL (0.0-0.0); PLATELET COUNT AUTOMATED 179 10*3/uL (130-400); RED CELL DISTRI WIDTH 12.2 % (0-14.5)
[2025-03-26 13:17] LABS: BUN 6 mg/dl (9-23); CPK 70 U/L (34-171)
[2025-03-26] MEDS ORDERED: hydrALAZINE hydrochloride 20 MG/ML VIAL IV ONE (14:00)
[2025-03-26] MEDS ORDERED: ACETAMINOPHEN 325 MG TAB PO PRN (14:55)
[2025-03-26] MEDS ORDERED: Acetaminophen/Hydrocodone 5 MG/325 MG TABLET PO PRN (14:55)
[2025-03-26] MEDS ORDERED: Ondansetron Hydrochloride 4 MG/2 ML VIAL IV PRN (14:55)
[2025-03-26] MEDS ORDERED: MAGNESIUM SULFATE 50 ML IV ONE (15:15)
[2025-03-26] MEDS ORDERED: VIT D2-K1 20-1259 ML PO (18:02)
[2025-03-26] MEDS ORDERED: LIPITOR10 MG PO (18:06)
[2025-03-26] MEDS ORDERED: Acetaminophen/Oxycodone 5 MG/325 MG TABLET PO SCH (22:00)
[2025-03-26] MEDS ORDERED: busPIRone Hydrochloride 5 MG TAB PO SCH (22:00)
[2025-03-27] VITALS: BP 100/57
[2025-03-27 06:38] LABS: BUN 10 mg/dl (9-23); FREE T4 1.13 ng/dl (0.89-1.76); SGPT/ALT 11 U/L (5-49)
[2025-03-27] MEDS ORDERED: OMEPRAZOLE 20 MG CAP PO SCH (07:30)
[2025-03-27 08:00] VITALS: BP 155/88
[2025-03-27] MEDS ORDERED: MAGNESIUM OXIDE 400 MG TAB PO SCH (10:00)
[2025-03-27] MEDS ORDERED: LISINOPRIL 20 MG TAB PO SCH (10:00)
[2025-03-27] MEDS ORDERED: LISINOPRIL 40 MG TAB PO SCH ×3 (10:00)
[2025-03-27] MEDS ORDERED: LISINOPRIL 20 MG TAB PO ONE (10:15)
[2025-03-27] MEDS ORDERED: LISINOPRIL40 MG PO (11:00)
== END 2025-03-27 11:40 | disposition home or self-care (01) ==
LOC: ED 12:12 → EDHOLD 14:31 → 5E 14:31
PROVIDERS: Emergency Medicine; ADMIT Internal Medicine; ATTEND Internal Medicine
DX: I16.1 Hypertensive emergency (principal); E83.42 Hypomagnesemia; F32.9 Major depressive disorder, single episode, unspecified; E05.90 Thyrotoxicosis, unspecified without thyrotoxic crisis or storm; M19.90 Unspecified osteoarthritis, unspecified site; R56.9 Unspecified convulsions; R11.2 Nausea with vomiting, unspecified; K21.9 Gastro-esophageal reflux disease without esophagitis; F32.A Depression, unspecified; R73.9 Hyperglycemia, unspecified; Z79.899 Other long term (current) drug therapy